=== PATIENT | male | born 1980 | race Two or more races ===

== ENCOUNTER 2025-09-08 13:06 | Emergency (ER) | payer OTHER, SELFPAY ==
--- OUTSIDE RECORDS SUMMARY | 2025-05-30 04:00 | XMS_ITS ---
Author Organization [facility] Address [address] [place] [address] Care Team Providers Care Biscuitware Brusher Name Role Phone Ml RIVAS, Miguel Woodward Primary Care Provider Unav ailable Madai Guerrero Unavailable [phone] REASON FOR VISIT Seen Sooner Encounters Encounter Location Date Provider Diagnosis [address] [address] 05/30/2025 Madai Guerrero Plan Of Treatment Next Appt Details Provider Name:Madai Graysondestiny mullen, 10/03/2025 10:00:00 AM, [address] [place] [address], [phone], Progress Notes * Quintin NAMroDOB:1980 ( 45 yo M)Acc No.[id number]:05/30/2025 Progress Note Patient: Robin ZARINA Jean Carlos Provider: Brandt Guerrero DPM :1980 A ge:44 Y S ex:Male Date:05/30/2025 Address: Manjit Axel [id number] Pcp:Miguel Bull MD Subjective: * Chief Complaints: * 1 . Seen Sooner. * Medical History: Objective: * Vitals: Assessment: Plan: * Treatment: * Images: * The named appointment provid er may or may not be the originator of this progress note, and it is not deemed complete until electronically signed by the appointment provider. Sign off status: Pending * Provider: Brandt Guerrero DPM Date: 0 05/30/2025 Generated for Samson Álvarez on: 11/08/2024 08:32 PM EST
--- OUTSIDE RECORDS SUMMARY | 2025-07-18 03:30 | XMS_ITS ---
Author Organization [facility] Address [address] [place] [phone] Care Team Providers Care Intensive Care Nurse Name Role Phone Ml RIVAS, Miguel Woodward Primary Care Provider Unav ailable Madai Guerrero Unavailable [phone] Encounters Encounter Location Date Provider Diagnosis [address] [address] 07/18/2025 Madai Guerrero Plan Of Treatment Next Appt Details Provider Name:Madai mullen, 10/03/2025 10:00:00 AM, [address] [place] [address], [phone], Progress Notes * Quintin NAMroDOB:1980 ( 45 yo M)Acc No.[id number]:07/18/2025 Progress Note Patient: Robin Jean Carlos SRINIVASAN Provider: Brandt Guerrero DPM :1980 A ge:44 Y S ex:Male Date:07/18/2025 Address:[facility] [address] [place], [id number] Pcp:Miguel Bull MD Subjective: * Chief Complaints: * * Medical History: Objective: * Vitals: Assessment: Plan: * Treatment: * Images: * The named appointment provid er may or may not be the originator of this progress note, and it is not deemed complete until electronically signed by the appointment provider. Sign off status: Pending * Provider: Brandt Guerrero, DARÍO Date: 0 07/18/2025 Generated for Samson holguin/Trini/Marian on: 11/08/2024 08:32 PM EST
--- OUTSIDE RECORDS SUMMARY | 2025-07-27 03:45 | XMS_ITS ---
[facility] Address [address] [place] [address] Care Team Providers Care Doorperson Or Luggage Porter Name Role Phone Ml RIVAS, Miguel Woodward Primary Care Provider Unav ailable Madai Guerrero Unavailable [phone] Encounters Encounter Location Date Provider Diagnosis Surgery [facility] ([facility]) [address] [place] [phone] 07/27/2025 Madai Guerrero Plan Of Treatment Next Appt Details Provider Name:Madai Barnhart paz, 10/03/2025 10:00:00 AM, [address] [place], [address], Progress Notes * Quintin NAMroDOB:1980 ( 45 yo M)Acc No.[id number]:07/27/2025 Patient: Robin Jean Carlos SRINIVASAN Provider: Brandt Guerrero DPM :1980 A ge:44 Y S ex:Male Date:07/27/2025 Address:[address] [place] [id number] Pcp:Miguel Bull MD * Images: * The named appointment provid er may or may not be the originator of this progress note, and it is not deemed complete until electronically signed by the appointment provider. Sign off status: Pending * Provider: Brandt Guerrero DPM Date: 1 Generated for Printi ng/Trini/Marian on: 1 11/08/2024 08:32 PM EST
--- NOTE | ~2025-09-08 | XR_ITS ---
EXAMINATION: XR ABDOMEN KUB CLINICAL INDICATION: Constipation. Small-bowel obstruction? COMPARISON: None available. TECHNIQUE: 3 AP views of the abdomen. FINDINGS: Moderate-large stool burden in the large colon. No abnormal dilated small or large bowel loops identified. No gross pneumoperitoneum on the supine views. Surgical clip in the right lower quadrant. The right lung base is not included in the [id number]. XR/XR KUB IMPRESSION: Moderate-large stool burden in the large colon. No abnormal dilated bowel loops identified. Electronically signed by: Danish Spann MD 09/08/2025 02:02 PM EST
--- NOTE | ~2025-09-08 | CT_ITS ---
CLINICAL HISTORY: epigastric abd pain, distention, bloating CT abdomen and pelvis with contrast Comparison: CR/SR - XR ABDOMEN 1 VIEW (KUB) - 09/08/25 13:52 EST Findings: The lung bases are clear. The gallbladder is unremarkable. No biliary ductal dilatation. The liver, spleen, pancreas and adrenal glands are unremarkable. Enhancement of bilateral kidneys with no ureteral stones and no hydronephrosis or hydroureter. Slight nonspecific bilateral perinephric stranding. No perinephric fluid. No bowel obstruction, pneumoperitoneum, or pneumatosis. There is mild haziness in retroperitoneal fat adjacent to the 3rd part of the duodenal which may represent mild duodenitis. No free fluid or loculated fluid collection. Right lower quadrant surgical clips suggestive of previous appendectomy. Correlate with surgical history. Pelvic contents unremarkable. Abdominal aorta normal in size. Small fat containing left inguinal hernia. The bones are intact. IMPRESSION: 1. Mild retroperitoneal fat haziness adjacent to the 3rd part of the duodenal may represent duodenitis. Further evaluate clinically. 2. Otherwise no acute findings. This document has been electronically signed by: Felecia Cifuentes MD on 09/08/2025 18:52:01
[2025-09-08 13:28] VITALS: BP 148/71; PULSE 80; RESP 20; TEMP 36.9; O2SAT 98; BMI 46.6
--- NOTE | 2025-09-08 13:32 | ED.GENADULT ---
HPI - General Adult General Chief complaint: Abdominal Pain Stated complaint: Stomach Pain Time Seen by Provider: 09/08/25 16:05 History of Present Illness ED Provider: Lisa Campbell [facility] narrative: 45-year-old male with a self-reported medical history of IBS presents to the ED for evaluation reporting severe constipation ongoing for 4-5 days. Patient reports that he went to an urgent care 5 days ago and was prescribed an oral pill as well as liquid and has taken both but still has not had a sufficient bowel movement. He reports his abdomen feels as though there is a brick inside of it, and is very distended and painful. He reports the pain now wraps around to the middle of the back. He endorses a decent appetite, without nausea or vomiting. No diarrhea. Denies any rectal pain or pressure. No black, tarry stools. Does report he is frequently belching and having difficulty passing gas. No fever or chills. No groin pain. No urinary complaints including dysuria, hematuria, urgency or frequency. No chest pain, shortness of breath, palpitations. Related Data Previous Rx's ?Medication ?Instructions ?Recorded lidocaine 4 % topical patch 1 patch topical BID PRN pain #30 ea 09/14/22 tizanidine 4 mg capsule 4 mg PO TID PRN muscle spasticity 09/14/22 #30 caps pantoprazole 40 mg tablet,delayed 40 mg PO DAILY 14 days #14 tabs 09/08/25 release (Protonix) polyethylene glycol 3350 17 17 g PO BID 21 days #714 grams 09/08/25 gram/dose oral powder (Miralax) Allergies Allergy/AdvReac Type Severity Reaction Status Date / Time ibuprofen (IBUPROFEN) Allergy Intermediate HIVES, rash Verified 09/08/25 13:31 [facility] Social History Social History Smoked in Last 30 Days: No Use of substances other than those prescribed or required for medical reasons: No Advance Directives: No Advance Directives Information Provided: No Do you have a plan to hurt others: No Plan Physical Exam ED Exam Exam: Nursing notes and vital signs reviewed. Constitutional: Well-appearing, NAD. Alert. Oriented X3. Eyes: EOMI. ENT: Pharynx normal. Neck: Normal inspection. Neck supple. CVS: Normal heart rate and rhythm. Pulses normal. Respiratory: No respiratory distress. Breath sounds normal. Abdomen: Soft, subjective tenderness throughout exam. Mild distention of the abdomen. Bowel sounds active x4. No CVA tenderness bilaterally. Skin: Skin warm and dry. Normal skin color. Extremities: No lower extremity edema. Neuro: Oriented X 3. No motor deficit. Vital Signs: Vital Signs - 24 hr 09/08/25 13:28 09/08/25 16:45 09/08/25 18:39 Temperature 98.4 F 98.0 F 97.5 F Pulse Rate 80 79 75 Respiratory Rate 20 18 16 Blood Pressure 148/71 H 129/64 122/71 Pulse Oximetry 98 96 98 Oxygen Delivery Method Room Air Room Air Room Air BMI result Body Mass Index 46.6 Course Course Course Narrative: RME: 45-year-old male presents to ED for constipation abdominal distention. Patient states last bowel movement was a week ago. Patient has no relief with pills or liquid laxative. Labs and KUB ordered Medications Administered Discontinued Medications Generic Name Dose Route Start Last Admin Trade Name Freq PRN Reason Stop Dose Admin Sodium Chloride 1,000 mls @ 999 mls/hr 09/08/25 16:25 09/08/25 18:02 Ns IV 09/08/25 17:25 Infused .Q1H1M ONE Infusion Famotidine 20 mg/ Sodium 52 mls @ 200 mls/hr 09/08/25 19:15 09/08/25 19:52 Chloride IV 09/08/25 19:30 Infused ONCE ONE Infusion Iohexol 100 ml 09/08/25 18:06 09/08/25 18:06 Iohexol 350 Mg/Ml 100 Ml Infus..Btl IV 09/08/25 18:07 85 ml ONCE ONE Administration Ketorolac Tromethamine 15 mg 09/08/25 16:25 09/08/25 16:47 Ketorolac Tromethamine 15 Mg/Ml Vial IVPUSH 09/08/25 16:26 15 mg ONCE ONE Administration Medical Decision Making Medical Decision Making MDM Narrative: Overall he appears well. Abdominal exam with diffuse tenderness throughout. Reports that the pain is radiating to the mid back as well. There is no CVA tenderness bilaterally. I have reviewed his lab work, which is reassuring. There is no leukocytosis, however his LFTs are elevated at 39 81, and lipase is 132. He does endorse mild epigastric pain. The x-ray that was ordered by the triage provider does show a moderate large stool burden, but no abnormal dilation of the bowel loops. Given the tenderness, I am concerned there may be a bowel obstruction missed on x-ray, or colitis, pancreatitis. We will proceed with pain control and IV fluid bolus, CT imaging of the abdomen and pelvis. I considered ordering a dose of morphine for this patient however given his constipation have opted for a dose of Toradol. 1904-- his CT shows mild retroperitoneal fat haziness sedation to the 3rd part of the duodenal which may represent duodenitis, otherwise no acute findings. He does a large stool burden likely there is no duodenitis, and his discomfort is from the large stool burden. I will discuss with the patient a bowel regimen outpatient with instructions for follow up care, but he was given a 1 time dose of Pepcid while in the ED. 1919-- reporting improvement after the Pepcid dose. Plan to discharge home with a bowel regimen. Patient is agreeable to this plan. Provided strict return precautions to the ED. Recommended PCP f/u within 1 week. Differential Diagnosis Differential Diagnoses: The differential diagnosis associated with the presentation includes Colitis, bowel obstruction, constipation, fecal impaction, renal stone Admission/Observation Consideration of admission/observation: Escalation of care including admission/observation considered Lab Data MDM Lab Attestation statement: I reviewed the patient's lab results. (Elevations in LFTs, lipase level.) 09/08/25 15:02 09/08/25 15:02 Labs: Lab Results 09/08/25 Range/Units 15:02 WBC 10.8 (4.8-10.8) X10*3/uL RBC 5.80 (4.60-5.80) X10*6/uL Hgb 14.2 (14.0-18.0) g/dl Hct 45.8 (42.0-52.0) % MCV 79.0 L (80.0-98.0) fL MCH 24.5 L (27.0-33.0) pg MCHC 31.0 (31.0-36.0) g/dl RDW 15.6 (11.0-16.0) % Plt Count 349 (160-400) X10*3/uL MPV 8.4 L (9.4-12.4) fL Immature Gran % (Auto) 0.4 (0.0-0.4) % Neut % (Auto) 63.6 (45-73) % Lymph % (Auto) 26.3 (20-40) % Fajardo % (Auto) 8.1 (2-11) % Eos % (Auto) 1.4 (0-4) % Baso % (Auto) 0.2 (0-2) % Lymph # (Auto) 2.8 (1.2-4.9) X10*3/uL Fajardo # (Auto) 0.9 (0.1-1.2) X10*3/uL Eos # (Auto) 0.2 (0.0-0.4) X10*3/uL Baso # (Auto) 0.0 (0.0-0.2) X10*3/uL Abs Immat Gran (auto) 0.04 H (0.00-0.03) X10*3/uL Absolute Neuts (auto) 6.9 (2.0-8.3) x10*3/uL Absolute Nucleated RBC 0.000 (0.0-0.012) X10*3/uL Nucleated RBC % (auto) 0.0 (0.0-0.2) /100WBC Sodium 142 (135-145) mmol/L Potassium 4.8 (3.3-5.1) mmol/L Chloride 105 (96-108) mmol/L Carbon Dioxide 29 (22-29) mmol/L Anion Gap 13 (12-20) BUN 15 (9-16) mg/dL Creatinine 0.97 (0.5-1.4) mg/dL Estim Creat Clear Calc 119.2 Estimated GFR > 60 Random Glucose 102 (60-115) mg/dL Calcium 9.6 (8.4-10.2) mg/dL Total Bilirubin 0.4 (0.0-1.0) mg/dL AST 39 H (5-37) U/L ALT 81 H (0-40) U/L Alkaline Phosphatase 98 (39-117) U/L Total Protein 8.3 H (6.5-8.0) g/dL Albumin 4.9 (3.5-5.0) g/dL Lipase 132 H (8-78) U/L Independent Interpretation I performed an independent interpretation of an: Plain X-Ray (No obvious bowel obstruction.) Interpretation: I have reviewed the patient's imaging and agree with the radiologist's findings. Radiology Impression Discussion of test interpretation with radiology: I have reviewed the radiologist's reading. Radiologist Impression: XR/XR KUB IMPRESSION: Moderate-large stool burden in the large colon. No abnormal dilated bowel loops identified. CT Abd/Pelvis-- IMPRESSION: 1. Mild retroperitoneal fat haziness adjacent to the 3rd part of the duodenal may represent duodenitis. Further evaluate clinically. 2. Otherwise no acute findings. External Record Review External record reviewed: Outpatient record (Outpatient clinic visit) Chronic Conditions Patient?s care impacted by: Other (IBS) Discharge Plan Discharge Clinical Impression: Abdominal pain, Constipation Patient Disposition: Home, Self-Care Instructions: Constipation (DC) Additional Instructions: As we discussed, your lab work was overall reassuring, as was the CT scan of the abdomen and pelvis. I have placed you on a short course of Protonix, medication to help with acid suppression of the stomach. If you develop any increasing burping, epigastric abdominal pain, we would like for you to seek re-evaluation in the ED. Additionally, dysuria constipation we discussed using [id number] methods including MiraLax twice daily. Please take 1 capsule in the evening, and 1 capsule in the morning. You should also take a Dulcolax, stimulant laxative to help have a bowel movement. We also recommend keeping the Senokot and your bowel regimen. You may also take Metamucil gummies in the morning to help with bowel movements. Please follow up with your primary care provider within 1 week. With any worsening complaints at any time, please seek re-evaluation in the ED. Prescriptions: New pantoprazole [Protonix] 40 mg tablet,delayed release (DR/EC) 40 mg PO DAILY 14 Days Qty: 14 0RF polyethylene glycol 3350 [Miralax] 17 gram/dose powder 17 g PO BID 21 Days Qty: 714 0RF No Action lidocaine 4 % adhesive patch,medicated 1 patch topical BID PRN (Reason: pain) Qty: 30 0RF tizanidine 4 mg capsule 4 mg PO TID PRN (Reason: muscle spasticity) Qty: 30 0RF Rx Instructions: Give 8-[address] or safety sensitive duties after taking this medication Referrals: Miguel Bull MD [Primary Care Provider, Medical] Interventions: ED Discharge Assessment Last Done: 09/08/25 19:49 Discharge Date/Time: 09/08/25 19:53 Print Language: Syriac
[2025-09-08 15:07] LABS: MANUAL DIFF FLAG NO
[2025-09-08 15:09] LABS: Hematocrit 45.8 % (42.0-52.0); Hemoglobin 14.2 g/dl (14.0-18.0); Imm Gran Abs Auto 0.04 X10*3/uL (0.00-0.03); Imm Gran Pct Auto 0.4 % (0.0-0.4); Lymphocytes Absolute Auto 2.8 X10*3/uL (1.2-4.9); Mean Corpuscular HGB Conc 31.0 g/dl (31.0-36.0); Mean Corpuscular Hemoglobin 24.5 pg (27.0-33.0); Mean Corpuscular Volume 79.0 fL (80.0-98.0); NRBC Abs Auto 0.000 X10*3/uL (0.0-0.012); NRBC Pct Auto 0.0 /100WBC (0.0-0.2); Platelet Count 349 X10*3/uL (160-400); Red Blood Count 5.80 X10*6/uL (4.60-5.80); White Blood Count 10.8 X10*3/uL (4.8-10.8)
[2025-09-08 15:24] LABS: Alanine Aminotransferase 81 U/L (0-40); Albumin Level 4.9 g/dL (3.5-5.0); Alkaline Phosphatase 98 U/L (39-117); Anion Gap 13 (12-20); Aspartate Amino Transferase 39 U/L (5-37); Blood Urea Nitrogen 15 mg/dL (9-16); Calcium 9.6 mg/dL (8.4-10.2); Carbon Dioxide 29 mmol/L (22-29); Chloride 105 mmol/L (96-108); Creatinine Clr Calc Pharmacy 119.2; Estimated Glomerular Filt Rate > 60; Lipase 132 U/L (8-78); Potassium 4.8 mmol/L (3.3-5.1); Sodium 142 mmol/L (135-145); Total Protein 8.3 g/dL (6.5-8.0)
[2025-09-08 16:45] VITALS: BP 129/64; PULSE 79; RESP 18; TEMP 36.7; O2SAT 96
[2025-09-08] MEDS: iohexoL 350 MG/ML 100 ML INFUS..BTL IV (18:06)
[2025-09-08 18:39] VITALS: BP 122/71; PULSE 75; RESP 16; TEMP 36.4; O2SAT 98
[2025-09-08 19:49] VITALS: BP 122/71; PULSE 75; RESP 16; TEMP 36.4; O2SAT 98
--- OUTSIDE RECORDS SUMMARY | 2025-09-08 20:32 | XMS_ITS | Patient Health Record ---
Author Organization [facility] Address [address] [facility] [place] [address] Care Team Providers Care Human Resources Mgr Name Role Phone Ml RIVAS, Miguel Woodward Primary Care Provider Unav ailable Madai Guerrero Unavailable [phone] David Parnell Unavailable [phone] Allergies Allergen (clinical drug ingredient) Drug/Non Drug Allergy documented on EMR Reaction Allergy Type Onset Date Status ibuprofen Ibuprofen hives Drug Allergy Active Results Component Value Reference Range Notes HEMOGLOBIN A1C (GLYCOHEMOGLO BIN) Reviewed date:02/10/2025 03:38:51 PM Interpretation: Performing Lab: Notes/Report: HEMOGLOBIN A1C % (HH) 8.4 HEMOGLOBIN A1C (GLYCOHEMOGLO BIN) Reviewed date:07/18/2025 03:19:16 PM Interpretation: Performing Lab: Notes/Report: HEMOGLOBIN A1C % (HH) 7.7 Reason For Referral No Information Medications Medication SIG (Take, Route, Frequency, Duration) Notes Start Date End Date Status Lisinopril 10 MG 1 tablet Orally Once a day Active Metoprolol Tartrate 25 MG 1 tablet with food Orally Twice a day; Duration: 30 day(s) Active metFORMIN HCl 500 MG 1 tablet with a meal Orally Once a day; Duration: 30 day(s) Active Ozempic Active Extra Depth Diabetic Shoes with 3 Pair Custom heat-molded multi-density innersoles for 1 year Dx: Active Famotidine 20 MG 1 tablet at bedtime as needed Orally Once a day Active Pantoprazole Sodium 40 MG 1 tablet Orally Once a day; Duration: 30 day(s) Active Extra Depth Diabetic Shoes with 3 Pair Custom heat-molded multi-density innersoles for 1 year Dx: Active Acetaminophen-Codein e 300-30 MG 1 tablet as needed Orally every 6 hrs 07/27/2025 Active Ciclopirox Olamine 0.77 % 1 application to affected area Externally Twice a day to effected areas on feet; Duration: 30 days Active Custom Orthotics as directed 05/31/2024 Active Atorvastatin Calcium 20 MG 1 tablet Orally Once a day; Duration: 30 day(s) Active Clotrimazole-Betamet hasone 1-0.05 % 1 application to affected area Externally Twice a day to affected areas on feet; Duration: 30 days Not-Taking Insulin Active oxyCODONE-Acetaminop hen 7.5-325 MG 1 tablet as needed Orally every 6 hrs; Duration: 3 days Partial Fill upon Patient Request 07/28/2025 Active glipiZIDE Active buPROPion HCl ER (SR) 200 MG 1 tablet in the morning Orally Once a day; Duration: 30 day(s) Active Loratadine 10 MG 1 tablet Orally Once a day; Duration: 30 day(s) Active Immunizations Vaccine Route Administration Date Status Comme nts Influenza Unknown 05/17/2019 Refused Influenza Unknown 07/20/2024 Administered Influenza Unknown 05/16/2025 Refused COVID-19 Chad & Chad/Jo-Ann Unknown 01/22/2021 A dministered Social History Tobacco Use: Social History Observation Description Date Details (start date - stop date) Never Smoker NA - NA Tobacco use other than smoking: Question Answer Notes Are you an other tobacco user? No Tobacco Control (Standard) Question Answer Notes Tobacco use: Nonsmoker Additional Findings: Tobacco non-user Current no nsmoker AUDIT-C (Standard) Question Answer Notes Did you have a drink containing alcohol in the p ast year? No Points 0 Interpretation Negative Problems Problem Type SNOMED Code ICD Code Onset Dates Problem Status W/U Status Risk Notes Problem Acquired hammer toe of left foot (3696690372115552 ) Other hammer toe(s) (acquired), left foot (M20.42) Active confirmed Problem Polyneuropathy due to type 2 diabetes mellitus (893528631) Type 2 diabetes mellitus with diabetic polyneuropathy (E11.42) Active confirmed Problem Localized, primary osteoarthritis of the ankle and/or foot (306494672) Arthritis of joint of lesser toe, left (M19.072) Active confirmed Vital Signs Blood pressure diastolic 65 mm Hg 08/08/2025 Height 5ft 5in in 08/08/2025 Blood pressure systolic 128 mm Hg 08/08/2025 Weight 280 lbs 08/08/2025 BMI 46.59 kg/m2 08/08/2025 Procedures Procedure Date Ordered Date Performed Result Body Sit e 00593- Debride <25 sq cm 02/14/2025 N/A Encounters Encounter Location Date Provider Diagnosis Surgery [facility] ([facility]) [address] [place] [address] 07/27/2025 Madai Guerrero [address] [address] 02/10/2025 Madai Guerrero Pain in left toe(s) M79.675 ; Other hammer toe(s) (acquired), left foot M20.42 and Arthritis of joint of lesser toe, left M19.[address] [address] 02/14/2025 Madai Guerrero Pain in left toe(s) M79.675 ; Other hammer toe(s) (acquired), left foot M20.42 ; Arthritis of joint of lesser toe, left M19.072 and Skin ulcer of toe of left foot, limited to breakdown of skin L97.[address] [address] 05/16/2025 Madai Guerrero Pain in left toe(s) M79.675 ; Other hammer toe(s) (acquired), left foot M20.42 ; Arthritis of joint of lesser toe, left M19.072 and Type 2 diabetes mellitus with diabetic polyneuropathy E11.[address] [address] 07/18/2025 Madai Guerrero Pain in left toe(s) M79.675 ; Other hammer toe(s) (acquired), left foot M20.42 ; Arthritis of joint of lesser toe, left M19.072 and Type 2 diabetes mellitus [facility]uropathy [facility] [address] [facility] [address] [place] [address] 07/29/2025 Madai Guerrero Pain in left toe(s) M79.675 ; Arthritis of joint of lesser toe, left M19.072 ; Type 2 diabetes mellitus with diabetic polyneuropathy E11.42 and [facility] [address] 08/08/2025 Madai Guerrero Pain in left toe(s) M79.675 ; Arthritis of joint of lesser toe, left M19.072 ; Type 2 diabetes mellitus with diabetic polyneuropathy E11.42 and Postoperative visit Z48.89 [facility] [address] 08/22/2025 Madai Guerrero Pain in left toe(s) M79.675 ; Arthritis of joint of lesser toe, left M19.072 ; Type 2 diabetes mellitus with diabetic polyneuropathy E11.42 and Postoperative visit Z48.89 [facility] [address] 02/11/2025 David Parnell [facility] [address] 02/14/2025 [facility] [address] 05/17/2025 [facility] [address] 06/22/2025 Madai Guerrero [facility] [address] 07/27/2025 Madai Guerrero [facility] [address] 07/28/2025 Madai Guerrero [facility] [address] 07/28/2025 Madai Guerrero Assessments Encounter Date Diagnosis (ICD Code) Assessment Notes Treatment Notes Treatment Clinical Notes Section Notes 02/10/2025 Pain in left toe(s) (ICD-10 - M79.675) 02/10/2025 Other hammer toe(s) (acquired), left foot (ICD-10 - M20.42) 02/14/2025 Pain in left toe(s) (ICD-10 - M79.675) 02/14/2025 Other hammer toe(s) (acquired), left foot (ICD-10 - M20.42) 05/16/2025 Pain in left toe(s) (ICD-10 - M79.675) 05/16/2025 Other hammer toe(s) (acquired), left foot (ICD-10 - M20.42) 07/18/2025 Pain in left toe(s) (ICD-10 - M79.675) 07/18/2025 Other hammer toe(s) (acquired), left foot (ICD-10 - M20.42) 07/29/2025 Pain in left toe(s) (ICD-10 - M79.675) 07/29/2025 Arthritis of joint of lesser toe, left (ICD-10 - M19.072) 08/08/2025 Pain in left toe(s) (ICD-10 - M79.675) 08/08/2025 Arthritis of joint of lesser toe, left (ICD-10 - M19.072) 08/22/2025 Pain in left toe(s) (ICD-10 - M79.675) 08/22/2025 Arthritis of joint of lesser toe, left (ICD-10 - M19.072) 07/18/2025 Arthritis of joint of lesser toe, left (ICD-10 - M19.072) 08/22/2025 Type 2 diabetes mellitus with diabetic polyneuropathy (ICD-10 - E11.42) 08/08/2025 Type 2 diabetes mellitus with diabetic polyneuropathy (ICD-10 - E11.42) 07/29/2025 Type 2 diabetes mellitus with diabetic polyneuropathy (ICD-10 - E11.42) 05/16/2025 Arthritis of joint of lesser toe, left (ICD-10 - M19.072) 02/14/2025 Arthritis of joint of lesser toe, left (ICD-10 - M19.072) 02/10/2025 Arthritis of joint of lesser toe, left (ICD-10 - M19.072) 02/14/2025 Skin ulcer of toe of left foot, limited to breakdown of skin (ICD-10 - L97.521) Patient Educated with: WOUND CARE INSTRUCTIONS. pdf (WOUND CARE INSTRUCTIONS. pdf) 05/16/2025 Type 2 diabetes mellitus with diabetic polyneuropathy (ICD-10 - E11.42) 07/18/2025 Type 2 diabetes mellitus with diabetic polyneuropathy (ICD-10 - E11.42) 07/29/2025 Postoperative visit (ICD-10 - Z48.89) 08/08/2025 Postoperative visit (ICD-10 - Z48.89) 08/22/2025 Postoperative visit (ICD-10 - Z48.89) 02/14/2025 Other Patient Educated with: WOUND CARE INSTRUCTIONS. pdf (WOUND CARE INSTRUCTIONS. pdf) Plan Of Treatment Pending Test Test Name Order Date X ray : Foot, left 3V 02/27/2023 X ray : Foot, left 3V 05/31/2024 13598- Debride <25 sq cm 02/14/2025 08894-XSOD SKIN LESIONS, OVER 4 05/17/20 19 04253-THPJ SKIN LESIONS, OVER 4 07/19/20 19 39377-DNAS SKIN LESIONS, OVER 4 03/02/20 21 C1893-FHAGSMNT DYSTROPHIC NAILS ANY # J2175-[id number] DYSTROPHIC NAILS ANY # [id number] DYSTROPHIC NAILS ANY # HEMOGLOBIN A1C (GLYCOHEMOGLOBIN) 025 Next Appt Details Provider Name:Madai Bronwyn mullen, 10/03/2025 10:00:00 AM, [address] [place], [address], Insurance Providers Payer Name Payer Address Payer Phone Subscriber Number Group Number Insured Name Patient Relationship to Insured Coverage Start Date Coverage End Date [facility] [address] [place] [address] [phone] [id number] Jean Carlos Childs Self - patient is the insured Medical (General) History Medical History History ICD Code Cholesterol type II diabetes High blood pressure Reflux ( GERD) Surgical History Surgery Date(Month/Year) appendectomy umbilical hernia repair HT Repair L5th DIAB, W/P 07/27/2025
--- OUTSIDE RECORDS SUMMARY | 2025-09-08 20:33 | XMS_ITS ---
Author Name [facility] Organization Unknown Care Team Organization Name Specialty Phone Email Start Date End Da te [facility] Ashley Hayden Primary [facility] 02/24/2023 06/07/20 [facility] Ml Primary Care 08/27/2022 06/07/2024
--- OUTSIDE RECORDS SUMMARY | 2025-09-08 20:33 | XMS_ITS | Data Portability ---
Author Organization [facility], [address] Address [address] [place] [address] Care Team Providers Care Quality Improvement Coordinator Name Role Phone [facility] Prim star junction Care Provider Assessment No assessment recorded. Plan of Treatment Reminders Order Date Submit Date Provider Last Modified By Organization Details Last Modified Time Details Appointments None recorded. Lab urinalysis , dipstick 2022 023 [email or web address] [facility], [address] [place] [address], [phone], 3 10:44:55 Referral None recorded. Procedures None recorded. Surgeries None recorded. Imaging XR, abdomen, 1 view 2022 023 [facility], [address] [place] [address], [id number], 3 11:33:05 Medication Orders None recorded. Patient TargetsNo targets recorded. Patient InstructionsNo instructions recorded. Reason for Referral None Reported. Results Created Date Observation Date Name Description Value Unit Range Abnormal Flag Note LastModifiedBy Organization Detail LastModifiedTime 02/18/2002/17/2023 urina lysis , dipst ick Unknown Analyte Light Yellow Not Available [facility] [address] [place] [address], [phone], 02/17/2023 10:06:15 02/18/20 23 02/17/2023 urina lysis , dipst ick Unknown Analyte Clear Not Available karl [address], [place], [address], 02/17/2023 10:06:15 02/18/20 23 02/17/2023 urina lysis , dipst ick Unknown Analyte Negati ve Not Available era wilson [address], [place], [address], 02/17/2023 10:06:15 02/18/20 23 02/17/2023 urina lysis , dipst ick Unknown Analyte Negati ve Not Available era wilson [address], [place], [address], 02/17/2023 10:06:15 02/18/20 23 02/17/2023 urina lysis , dipst ick Unknown Analyte Negati ve Not Available era wilson [address], [place], [address], 02/17/2023 10:06:15 02/18/20 23 02/17/2023 urina lysis , dipst ick Unknown Analyte 1.010 Not Available karl [address], [place], [address], 02/17/2023 10:06:15 02/18/20 23 02/17/2023 urina lysis , dipst ick Unknown Analyte Negati ve Not Available era wilson [address], [place], [address], 02/17/2023 10:06:15 02/18/20 23 02/17/2023 urina lysis , dipst ick Unknown Analyte 5.5 Not Available karl [address], [place], [address], 02/17/2023 10:06:15 02/18/20 23 02/17/2023 urina lysis , dipst ick Unknown Analyte Negati ve Not Available era [place]son [address] [place], [address], 02/17/2023 10:06:15 02/18/20 23 02/17/2023 urina lysis , dipst ick Unknown Analyte 0.2 E.U./d L Not Available era [place]son [address] [place], [address], 02/17/2023 10:06:15 02/18/20 23 02/17/2023 urina lysis , dipst ick Unknown Analyte Negati ve Not Available 20[address]era wilson [address] [place], [address], 02/17/2023 10:06:15 02/18/20 23 02/17/2023 urina lysis , dipst ick Unknown Analyte Negati ve Not Available [facility] [address], [place], [address], 02/17/2023 10:06:15 02/18/20 23 02/17/2023 XR, abdom en, 1 view No observ ation record ed. [place] [id number] [facility] [address] [place], [address], 02/17/2023 16:05:24 Result Notes None recorded. Procedures Surgical History Date Name Laterality Status Provider Name and Address Organization Details Recorded Time Appendectomy completed HARRY LOVETT PA - [facility] 02/17/2023 09:57:20 repair of umbilical hernia completed HARRY LOVETT PA - [facility] 02/17/2023 09:57:52 Imaging Results None recorded. Procedure Notes None recorded. Medical Equipment None Reported. Allergies Allergen ID Allergen Name Allergen Category Reaction Reaction Severity Criticality Documentation Date Start Date Code Code System Note Provider Name and Address Organization Details Recorded Time 983405 ibuprofen medicatio n Not available Not available Not available 02/17/2023 5640 RxNorm HARRY steiner, PA - [facility] 3 09:54:59 Medications Name Sig Start Date Stop Date Status Note LastModified by Organization Details LastModified Time atorvastati n 20 mg tablet TAKE 1 TABLET BY MOUTH EVERY DAY active Not Available Not Available No t Available bupropion HCl 100 mg tablet TAKE 1 TABLET BY MOUTH TWICE A DAY active Not Available Not Available No t Available famotidine 20 mg tablet TAKE 1 TABLET BY MOUTH DAILY AT BEDTIME NEEDED FOR HEARTBURN active Not Available Not Available No t Available methocarbam ol 750 mg tablet TAKE 1 TABLET BY MOUTH EVERY DAY FOR 10 DAYS 02/17 completed Not Available Not Available Not Available pantoprazol e 40 mg tablet,chon yed release PLEASE SEE ATTACHED FOR DETAILED DIRECTION S active Not Available Not Available No t Available lisinopril 10 mg tablet TAKE 1 TABLET BY MOUTH EVERY DAY active Not Available Not Available No t Available bisacodyl 5 mg tablet,chon yed release PLEASE SEE ATTACHED FOR DETAILED DIRECTION S active Not Available Not Available No t Available metformin ER 500 mg tablet,exte nded release 24 hr TAKE 2 TABLETS BY MOUTH TWICE A DAY active Not Available Not Available No t Available loratadine 10 mg tablet TAKE 1 TABLET BY MOUTH EVERY DAY active Not Available Not Available No t Available glipizide 5 mg tablet TAKE 2 TABLETS IN THE MORNING BY MOUTH IN A.M. AND 2 TABLETS BY MOUTH IN P.M BEFORE DINNER active Not Available Not Available No t Available naproxen 500 mg tablet TAKE 1 TABLET BY MOUTH TWICE A DAY WITH MEALS 02/17 completed Not Available Not Available Not Available metoprolol tartrate 25 mg tablet TAKE 1 TABLET BY MOUTH TWICE A DAY active Not Available Not Available No t Available tizanidine 4 mg capsule TAKE 1 CAPSULE BY MOUTH 3 TIMES DAILY NEEDED FOR MUSCLE SPASMS active Not Available Not Available No t Available BD Ultra-Fine Short Pen Needle 31 gauge x 5/16 USE WITH INSULIN PEN ONCE DAILY active Not Available Not Available No t Available Lantus Solostar U-100 Insulin 100 unit/mL (3 mL) subcutaneou s pen INJECT 36 UNITS INTO SKIN ONCE AT BEDTIME INCREASE BY 2 UNITS EVERY 3 DAYS MAX OF 44 UNITS active Not Available Not Available No t Available GaviLyte-G 236 gram-22.74 gram-6.74 gram-5.86 gram oral solution PLEASE SEE ATTACHED FOR DETAILED DIRECTION S 02/17 completed Not Available Not Available Not Available Trulicity 1.5 mg/0.5 mL subcutaneou s pen injector INJECT 1.5 MG INTO THE SKIN ONCE A WEEK. active Not Available Not Available No t Available Trulicity 3 mg/0.5 mL subcutaneou s pen injector INJECT 3 MG INTO THE SKIN ONCE A WEEK. active Not Available Not Available No t Available Trulicity 4.5 mg/0.5 mL subcutaneou s pen injector INJECT 4.5 MG INTO THE SKIN ONCE A WEEK. active Not Available Not Available No t Available Vitals Date Recorded Body height Body mass index (BMI) Body weight Oxygen saturation Heart rate Respiratory rate Body temperature Systolic And Diastolic Provider Name and Address Organization Details Last Updated DateTime 3 165.1 cm 48.9 kg/m2 769142. 16 g 98 % 72 /min 16 /min 98.3 [degF] 136/85 mm[Hg] HARRY LOVETT PA - [facility] 3 10:00:45 Social History Question Answer Notes LastModified by Organization D etails LastModified Time Have You Recently Traveled Abroad? No [email or web address] Information not available 02/17/2023 Sex: Unknown Functional Status Question Answer Note LastModified by Organizat ion Details LastModified Time Do you use any illicit or recreational drugs? No [email or web address] Information not available 02/17/2023 Do you or have you ever used any other forms of tobacco or nicotine? No Information not available 02/17/2023 What is your level of alcohol consumption? None Information not available 02/17/2023 Mental Status None recorded. Family History Relationship Description Onset Age of this Age Resolved Age Notes LastModified by Organization Details LastModified Time Father Diabetes mellitus [email or web address] Not available 2022 10:01:56 Medical History Condition Response Gout N Cancer, liver N Hyperthyroidism N Thyroid disorder N Rheumatoid arthritis N GI bleeding N Irritable bowel syndrome N Depression N COPD N Tinnitus, unspecified ear N Pneumonia N Cancer, uterus N Mental disorder, NOS N Headaches/Migraines N Insomia N Alzheimer's disease N Anxiety Disorder N Obesity N Arthritis N Cancer N Stroke N Alcohol abuse N Liver disease N Cancer, bladder N Allergy Food/Medication N Peripheral artery disease N Oxygen dependence N Fibromyalgia N Atrial fibrillation N Tinnitus, right ear N Kidney Disease N Deep vein thrombosis DVT leg N Migraine N Disorder of circulatory system N Anxiety N Cancer, brain N Disease of pancreas N Cancer, lung N Eating disorder, unspecified N Cancer, colon N Crohn's disease N Cancer, cervical N N Cancer, breast N Cancer, skin N Coagulation defect, unspecified N Cataract N Asthma N Congestive heart failure (CHF) N Substance Abuse N Vertigo N Coronary artery disease N Pulmonary Embolism N Cancer, pancreas N Tobacco use disorder N Disease of lung N Allergic rhinitis N Joint disorder, unspecified N Menopause N Drug dependence, unspecified N Back disorder N Hypothyroidism N Disorder kidney N Sickle Cell Anemia N Cancer, ovarian N Biswas's Palsy N Disorder of eye N Cancer, prostate N Allergy Seasonal N Drug abuse N Disorder of urinary system N Disorder of lymph system N Radiculopathy, site unspecified N Myoneural disorder, unspecified N Nervous system disorder N ADHD N High Cholesterol N Post-herpetic neuralgia N Aneurysm, cerebral N Tinnitus, left ear N Prostate hypertrophy, benign N Disorder of skin/subcutaneous N Osteoarthritis N Disorder of ear N Ovarian cysts N Parkinson's disease N Low back pain N Carpal tunnel syndrome N Disorder of muscle N Anemia N Kidney stone N Bipolar affective disorder N Leukemia, unspecified N Diabetes Y Endocrine disorder N Disorder involving the immune mechanism N Seizure N Hyperlipidemia N Lymphoma N Emphysema, unspecified N Eczema N Diverticulitis N Dementia N Lupus N Seizure disorder N Reflux/GERD Y Sleep Apnea N Cancer, bone N Disorder of thyroid N Cardiac arrhythmia, unspecified N Disorder of bone N Heart Disease N Liver Disorder N Disorder of brain N Hypertension N Aneurysm, aortic N Osteoporosis N Gastroesophageal reflux (GERD) N Disease of digestive system, unspecified N Past Encounters Encounter ID Performer Location Encounter Start Date Encounter Closed Date Diagnosis/Indication Diagnosis SNOMED-CT Code Diagnosis ICD10 Code Diagnosis IMO Codes Diagnosis Note [id number] [facility] _[address] [address] 07/09/2021 14:57:09 07/09/2021 16:26:10 [id number] [facility] [address] [address] 10/27/2015 16:01:40 10/27/2015 16:58:22 [id number] [facility] [address] [address] [place] [address] 08/02/2021 08:17:14 08/02/2021 09:39:14 [id number] [facility] [address] [address] [place] [address] 05/24/2016 14:53:09 05/24/2016 16:04:56 [id number] [address] [address] [address] [place] [address] 07/04/2016 14:29:04 07/04/2016 16:30:13 [id number] [facility] [address] [address] [place] [address] 10/31/2018 08:43:07 10/31/2018 09:49:05 [id number] [address] [address] [address] [place] [address] 12/29/2016 14:41:42 12/29/2016 16:08:49 [id number] [address] [facility] [address] [place] [address] 02/02/2016 14:53:07 02/02/2016 16:09:17 [id number] Kyle Lomeli MD [address] [address] [place] [address] 02/17/2023 09:29:32 02/17/2023 11:10:52 Abdominal discomfort 56646167 R10.9 Abdominal exam is normal and at this time I dont think there is a serious underlying cause but if symptoms worsen you will need to go to ER for further evaluation Suggest stopping metamucil, increasing water intake.Loo k up FOD-Map diet for IBS and follow.Fol low up with your PCP in the next 3-5 daysIf pain worsens then you need to go to the ER immediatel Victor Manuel s was negative Health Concerns Section Related Observation LastModified by Organization Detai ls LastModified Time None Recorded Concern Status LastModified by Organization Details LastModified Time None Recorded Advance Directives Directive None Recorded Payers Insurance Date Sequence Insurance Name Policy Number Policy Moraes Covered Member ID Moraes Member ID Guarantor Name 02/17/[address] [place] [address] [id number] Jean Carlos I I Childs [id number] Jean Carlos I Childs Notes Date Note Type Note Provider Name and Address Organization Details Recorded Time 02/17/2023 text/html Abdominal PainReported by PatientAbdominal PainFor quality, patient reportsbloating. For location, patient reportsgeneralized. For severity, patient reportsno pain. For onset/timing, patient reportsgradual. For modifying factors, patient reportsnothing makes it worseandnothing gives relief. For associated symptoms, patient reportsno fever,no chills,no nausea,no vomiting,no diarrhea,no constipation,no blood in the urine,no heartburn,no shortness of breath, andno change in bowel/bladder habits. Has IBS, thought maybe it was constipation and started taking Metamucil daily. Blood sugars are well controlled. having daily bowel movements, not passing excessive gas. Kyle Lomeli MD [facility] [place], [address], [place] - [facility] 02/17/2023 15:55:39
--- OUTSIDE RECORDS SUMMARY | 2025-09-08 20:33 | XMS_ITS | Clinical Summary ---
Author Organization [address] [place] [address] [place] [phone] Phone Care Team Providers Care Director Of Video Analytics Name Role Phone Miguel Bull MD Primary Care Provider [phone] Allergies Active Allergy Reactions Criticality Noted Date Comments Ibuprofen 12/01/2012 Other Reaction(s): Rash/Dermatitis Medications blood glucose control, normal (OneTouch Ultra Control) solution Use as needed 025 Active blood-glucose meter kit 1 each. Use daily Active FREESTYLE LANCETS MISC 1 (one) time each day. Use twice daily to check blood sugars Active blood sugar diagnostic (FreeStyle Lite Strips) test strip Use twice daily to check blood sugars 025 Active insulin syringe-needle U-100 0.3 mL 31 gauge x 5/16 syringe Use with insulin pen once daily 024 Active pen needle, diabetic (BD Ultra-Fine Short Pen Needle) 31 gauge x 5/16 needle Use to inject once daily as directed 100 each 3 024 Active Lantus Solostar U-100 Insulin 100 unit/mL (3 mL) injection penIndications:Ty pe 2 diabetes mellitus with hyperosmolarity without nonketotic hyperglycemic-hyp erosmolar coma ([facility]) ([facility]/HCC V24, [facility]/HCC V28) INJECT 54 UNITS INTO SKIN ONCE AT BEDTIME INCREASE BY 2 UNITS EVERY 3 DAYS MAX OF 60 UNITS 15 mL 5 025 Active loratadine (CLARITIN) 10 mg tablet Take 1 tablet (10 mg total) by mouth 1 (one) time each day. 90 tablet 1 025 Active fluticasone propionate (FLONASE) 50 mcg/actuation nasal spray Administer 2 sprays into each nostril 1 (one) time each day. Shake gently. Before first use, prime pump. After use, clean tip and replace cap. 16 g 2 025 2025 Active metoprolol tartrate (LOPRESSOR) 25 mg tablet TAKE 1 TABLET BY MOUTH TWICE A DAY 180 tablet 3 025 Active atorvastatin (LIPITOR) 20 mg tablet TAKE 1 TABLET BY MOUTH EVERY DAY 90 tablet 1 025 Active albuterol HFA (PROAIR HFA ; PROVENTIL HFA ; VENTOLIN HFA) 90 mcg/actuation inhaler Inhale 2 puffs by mouth every 4 (four) hours if needed for wheezing or shortness of breath. 6.7 g 025 Active buPROPion (WELLBUTRIN) 100 mg tablet Take 1 tablet (100 mg total) by mouth 2 (two) times a day. 180 tablet 1 025 Active lisinopriL (PRINIVIL,ZESTRIL ) 10 mg tablet Take 1 tablet (10 mg total) by mouth 1 (one) time each day. 90 tablet 1 025 Active pantoprazole (PROTONIX) 40 mg EC tablet Take 1 tablet (40 mg total) by mouth 1 (one) time each day before breakfast. Do not crush, chew, or split. 90 tablet 1 025 Active famotidine (PEPCID) 20 mg tablet Take 1 tablet (20 mg total) by mouth at bedtime. 30 tablet 5 025 Active metFORMIN XR (GLUCOPHAGE-XR) 500 mg 24 hr tablet TAKE 2 TABLETS BY MOUTH TWICE A DAY 360 tablet 1 025 Active Ozempic 2 mg/dose (8 mg/3 mL) injection penIndications:Ty pe 2 diabetes mellitus with hyperglycemia, with long-term current use of insulin ([facility] V24, [facility] V28) INJECT 2 MG SUBCUTANEOUSLY EVERY 7 DAYS 3 mL 5 025 Active semaglutide (Ozempic) 2 mg/dose (8 mg/3 mL) injection penIndications:Ty pe 2 diabetes mellitus with hyperglycemia, with long-term current use of insulin ([facility] V24, [facility] V28) Inject 2 mg under the skin every 7 (seven) days. 3 mL 5 025 2024 Discontinued Active Problems Problem Noted Date Diagnosed Date Morbid obesity with body mas s index (BMI) of 45.0 to 49.9 in adult ([facility] V24, [facility] V28) 08/02/2024 Low back pain 05/27/2022 Overview (08/02/2024): Last Assessment & Plan: Mr. Nam is following up with persistent low back pain, no radicular leg pain. Patient states he has been noticing some cramping in the calves the last few weeks, no particular inciting event other than patient started using insulin a few weeks ago around the same time. He has been working on improving his diabetic diet, like cutting out carbs/bread. In terms of his back pain, we had prescribed physical therapy at his last office visit, he went for 1 session then got a COVID infection and could not continue. In the meantime he had been billed for the entire PT session, found out his insurance company would not cover the PT until he reached his full deductible. He states that this time he cannot afford to do PT, but did try to continue the exercises they showed him on his first session. No bowel bladder incontinence. I reviewed his lumbar spine MRI at [facility] 05/07/[address] Bal while patient was in the office today, he does not see any nerve root compression, significant degenerative changes, is not recommending any surgical intervention. (He also looked at lumbar x-rays at [facility] on the patient.) Mr. Nam is working on improving his diet and caloric intake for his diabetes and weight loss, which should also help with his low back pain. He works at [employer] for approximately 9-10 hours a day, is mostly standing. We talked about continuing to try to work on core strengthening, walking daily. We talked about some of his dietary changes he can try. He will call if he needs a prescription for PT or aquatic PT, he is currently considering looking for a new insurance that may cover these conservative treatments. All questions answered on today's visit. I asked him to give me a call in a couple months with an update on how he is doing. Pilonidal cyst 04/17/2021 Elevated LFTs 07/17/2020 Intermittent explosive disorder 12/28/2018 Obstructive sleep apnea 03/31/2018 Overview (08/02/2024): [facility] Home Polysomnogram: Date 03/24/2018; AHI 15, Unclassified apneas 0; Obstructive apneas 1; Central apneas 0; Mixed apneas 0; hypopneas 86; average oxygen saturation 97% (lowest 88% without saturations <88% for 5% or more of study) - Obstructive Sleep Apnea - moderate; mostly hypopneas; without sleep related hypoventilation by 2018 home polysomnogram. Hyperlipidemia 03/19/2018 Type II diabetes mellitus ([facility] V24, [facility] V28) 10/08/2016 Hypertension 01/10/2016 Anxiety and depression 01/10/2016 Overview (08/02/2024): Anger issues follows by a psychiatrist Fatty liver disease, nonalcoholic 05/18/2012 Overview (08/02/2024): Elevated ALT Lactose intolerance 11/15/2010 GERD (gastroesophageal reflux disease) 0 Sinusitis, chronic 11/11/2008 Encounters Date Type Department Care Team Description 07/07/2025 10:00 AM EDT Consult Adult Medicine [address] [phone] Miguel Bull MD Preop cardiovascular exam (Primary Dx); Anxiety and depression; Primary hypertension; Gastroesophageal reflux disease, unspecified whether esophagitis present; Type 2 diabetes mellitus with hyperglycemia, with long-term current use of insulin ([facility] V24, [facility] V28) 06/23/2025 Telephone Gastroenterology - [place] [address] [facility] 175 [facility] [address] [place] [address] Rowena Mccoy MD from Last 3 Months Immunizations Immunization Administration Dates Next Due Influenza trivalent, 0.5mL, preservative free (Fluarix; FluLaval; Fluzone) ages 6mo and older (Afluria) 3 years and older 12/20/2013,07/13/2012 Pneumococcal polysaccharide 23 valent (Pneumovax 23) 2yo and older 02/01/2019 Td Tetanus diptheria (Tdvax) 7yo and older 05/24 Tdap Tetanus diptheria acell ular pertussis (Boostrix; Adacel) 7yo and older 05/20/2016 Surgical History Surgery Date Site/Laterality Comments ESOPHAGOGASTRODUODENOSCOPY 02/27/2010 PROCEDURE: [place] EGD TRANSORAL BIOPSY SINGLE/MULTIPLE; COMMENT: esophagus normal-biopsy:Normal, gastric erosion-biopsy:reactive gastropathy-healing erosion(HPylori-), nl sb-biopsy: Normal COLONOSCOPY W/ BIOPSIES 02/27/2010 PROCEDURE: [place] COLONOSCOPY STOMA W/BIOPSY SINGLE/MULTIPLE; COMMENT: Up to cecum, good preparation, normal colon exam, random colon biopsy:Normal OTHER SURGICAL HISTORY 09/05/2014 PROCEDURE: BARIUM SWALLOW; COMMENT: [facility] - small amount of high-grade positional gastroesophageal reflux with fair clearance. Otherwise normal. HERNIA REPAIR 05/17/2015 PROCEDURE: HISTORICAL HERNIA REPAIR/UMB; COMMENT: w/ sebaceous cyst excision APPENDECTOMY PROCEDURE: HISTORICAL APPENDECTOMY COLONOSCOPY 01/08/2017 PROCEDURE: HISTORICAL COLONOSCOPY; COMMENT: [facility] - 4mm TA polyp of sigmoid colon Medical History Medical History Date Comments GERD (gastroesophageal reflux disease) 0 DX:GERD (gastroesophageal reflux disease) Lactose intolerance 11/15/2010 DX:Lactose i ntolerance Historical Medical DX 11/11/2008 DX:Sinusit is; chronic Fatty liver disease, nonalcoholic 05/18/2012 DX:Fatty liver disease, nonalcoholic Hypertension 01/10/2016 DX:Hypertension Anxiety and depression 01/10/2016 DX:Anxiet y and depression Hypertriglyceridemia 01/10/2016 DX:Hypertri glyceridemia Vitamin D deficiency 01/10/2016 DX:Vitamin D deficiency Morbid obesity with body mas s index (BMI) of 45.0 to 49.9 in adult ([facility]/HCC V24, [facility]/HCC V28) 01/20/2013 DX:Morbid obesity with body mass index (BMI) of 45.0 to 49.9 in adult ([facility]) Elevated glucose 10/08/2016 DX:Elevated glu cose Family history of prostate cancer 10/07/2016 DX:Family history of prostate cancer Hyperlipidemia 03/19/2018 DX:Hyperlipidemi a Obstructive sleep apnea 03/31/2018 DX:Obstr uctive sleep apnea; COMMENT: [facility] Home Polysomnogram: Date 03/24/2018; AHI 15, Unclassified apneas 0; Obstructive apneas 1; Central apneas 0; Mixed apneas 0; hypopneas 86; average oxygen saturation 97% (lowest 88% without saturations <88% for 5% or more of study) - Obstructive Sleep Apnea - moderate; mostly hypopneas; without sleep related hypoventilation by 2018 home polysomnogram. Sinusitis, chronic 11/11/2008 DX:Sinusitis, chronic History of adenomatous polyp of colon 07/31/2020 DX:History of adenomatous polyp of colon; COMMENT: December 2016 - repeat in 5 years (2021) Type 2 diabetes mellitus wit hout complications (CMS/HCC V24, CMS/HCC V28) DX:Type 2 nir betes mellitus without complications (HCC) Abdominal bloating DX:Abdominal bloating Family History Medical History Relation Name Comments Hypertension Father prostate cancer Prostate cancer Father Other: Other Mother Borderline Diab etes Relation Name Status Comments Father Alive Mother Alive Social History Tobacco Use Types Packs/Day Years Used Date Smoking Tobacco: Former Cigarettes 1.5 5 0 10/20/1996 - 10/20/2001 Smokeless Tobacco: Former Tobacco Cessation:Counseling Given: Not Answered Alcohol Use Standard Drinks/Week Comments Yes 0 (1 standard drink = 0.6 oz pur e alcohol) Sex and Gender Information Value Date Recorded Sex Assigned at Not on file Legal Sex Male 11:45 PM EST Gender Identity Not on file Sexual Orientation Not on file Obstetrics History Last Filed Vital Signs Vital Sign Reading Time Taken Comments Blood Pressure 132/74 07/07/2025 10:38 AM EDT Pulse 76 07/07/2025 10:38 AM EDT Temperature 36.7 C (98.1 F) 07/07/2025 10:38 AM EDT Respiratory Rate 16 07/07/2025 10:38 AM EDT Oxygen Saturation 99% 02/23/2025 11:05 AM EDT Inhaled Oxygen Concentration - - Weight 127 kg (280 lb) 07/07/2025 10:38 AM EDT Height 165.1 cm (5' 5 ) 07/07/2025 10:38 AM EDT Body Mass Index 46.59 07/07/2025 10:38 AM EDT Plan of Treatment Upcoming Encounters Date Type Department Care Team (Late st Contact Info) Description 09/12/2025 8:00 AM EST Office Visit Endocrinology - [place] [address] [place], [place] [phone] Ashley Hayden PA [address] [place], [place] 11/14/2025 8:30 AM EST Office Visit Adult Medicine [place] [facility] [place] [address] [place], [place] [phone] Miguel Bull MD [address] [place], [place] 11/21/2025 9:50 AM EST Office Visit Gastroenterology - [address] [phone] Yulisa Antunez PA [address] [address] Health Maintenance Due Date Last Done Comments HPV Vaccines (1 - 3-dose SCDM series) 2007 Social Influencers of Health Screening 09/28/2022 COVID-19 Vaccine ( season) 2025 01/22/2021 Influenza Vaccine (#1) 2025 , 12/20/2013, 07/13/2012 Diabetes: Annual Urine Albumin-Creatinine Ratio (uACR) 06/28/2025 06/28/2024 Diabetes: Blood Sugar Control Test (HGBA1C) 11/16/2025 05/16/2025, 01/06/2025, 10/06/2024, Additional history exists Diabetes: Annual GFR (Glomerular Filtration Rate) 01/06/2026 01/06/2025, 06/28/2024, 06/28/2024 Hypertension/CHF/CAD Annual BMP Blood Test 01/06/2026 01/06/2025, 06/28/2024, 06/28/2024 Diabetes: Annual Foot Exam 05/10/2026 05/10/2025, Diabetes: Annual Retina Eye Exam 08/18/2026 08/18/2025, 08/05/2024, 08/12/2023 Colorectal Cancer Screening: Colonoscopy 06/25/2027 06/25/2022 Cholesterol Screening (Lipid Panel) 06/28/2029 06/28/2024, 06/28/2024 DTaP,Tdap,and Td Vaccines (4 - Td or Tdap) 04/19/2033 04/19/2023, 05/24/2016, 05/20/2016 RSV Immunization Adult Patients (1 - 1-dose 75+ series) 2055 HIV Screening Completed 03/15/2004 Pneumococcal Vaccine: Pediatrics (0 to 5 Years) and At-Risk Patients (6 to 49 Years) Discontinued 02/01/2019 Hepatitis C Screening Completed 07/17/2020 Depression Screening Completed 05/10/2025 HIB Vaccines Aged Out No longer eligi ble based on patient's age to complete this topic Hepatitis A Vaccines Discontinued Hepatitis B Vaccines Discontinued IPV Vaccines Aged Out No longer eligi ble based on patient's age to complete this topic MMR Vaccines Aged Out No longer eligi ble based on patient's age to complete this topic Meningococcal ACWY Vaccine Aged Out N o longer eligible based on patient's age to complete this topic Meningococcal B Vaccine Aged Out No l onger eligible based on patient's age to complete this topic RSV Immunization Patients Under 20 months Aged Out No longer eligible based on patient's age to complete this topic Varicella Vaccines Aged Out No longer eligible based on patient's age to complete this topic Procedures Procedure Name Priority Date/Time Associated Diagnosis Comments EXTERNAL DIABETIC RETINA EYE EXAM 08/18/2025 ECG 12-LEAD Routine 07/07/2025 1:43 PM EDT Preop cardiovascular exam HEMOGLOBIN A1C Routine 05/16/2025 10:04 AM EDT Diabetic polyneuropathy ([facility] V24, [facility] V28) COMPREHENSIVE METABOLIC PANEL Routine 01/06/2025 1:02 PM EDT Type 2 diabetes mellitus with hyperglycemia, with long-term current use of insulin ([facility] V24, [facility] V28) Primary hypertension HM URINE ALBUMIN CREATININE RATIO Routine 06/28/2024 LIPID PANEL Routine 06/28/2024 DIABETES FOOT EXAM Routine 05/31/2024 HM COLONOSCOPY Routine 06/25/2022 HM HEPATITIS C SCREENING Routine 07/17/2020 HIV SCREENING Routine 03/15/2004 from Last 3 Months or Most Recently Relevant to Health Maintenance Results * External Diabetic Retina Eye Exam Report (08/18/2025) Anatomical Region Laterality Modality Ultrasound us Provider [facility] US PROCEDURES Final Result * ECG 12 lead (07/07/2025 1:43 PM EDT) Narrative Miguel Bull MD - 07/07/2025 1:43 PM EDT EKG ordered in my file office today reviewed normal sinus rhythm and nonspecific ST-T changes. EKG reviewed by me compared with previous tracing, there is no acute changes. Final reading by cardiology still pending. us Miguel Bull MD ECG ORDERABLES Final Result * (ABNORMAL) Hemoglobin A1c (05/16/2025 10:04 AM EDT) Hemoglobin A1C 7.7(H) <6.5 % LAB CHEMISTRY METHOD 05/16/2025 2:04 PM EDT [facility] Mean Bld Glu Estim. 174 mg/dL LAB CHEMISTRY METHOD 05/16/2025 2:04 PM EDT [facility] Blood Venous blood specimen / Unknown Venipuncture / Unknown 05/16/2025 10:04 AM EDT 05/16/2025 10:04 AM EDT us Madai Guerrero DPM LAB BLOOD ORDERABLES Final Result [facility] [address] [place] [address], * (ABNORMAL) Comprehensive metabolic panel (01/06/2025 1:02 PM EDT) Sodium 138 133 - 145 mmol/L LAB CHEMISTRY METHOD 01/06/2025 4:53 PM EDT [facility] Potassium 4.7 3.5 - 5.5 mmol/L LAB CHEMISTRY METHOD [facility]25 4[facility] Chloride 104 96 - 110 mmol/L LAB CHEMISTRY METHOD 01/06/2025 4:53 PM [facility] CO2 30 21 - 32 mmol/L LAB CHEMISTRY METHOD 01/06/2025 4:53 PM [facility] Anion Gap 4 3 - 11 LAB CHEMISTRY METHOD 01/06/2025 4:53 PM [facility] Glucose 106(H) 70 - 100 mg/dL LAB CHEMISTRY METHOD 01/06/2025 4:53 PM [facility] BUN 16 5 - 25 mg/dL LAB CHEMISTRY METHOD 01/06/2025 4:53 PM [facility] Creatinine 1.01 0.70 - 1.30 mg/dL LAB CHEMISTRY METHOD 01/06/2025 4:53 PM [facility] eGFR 94 >=60 mL/min/1. 73m2 LAB CHEMISTRY METHOD 01/06/2025 4:53 PM [facility] Comment:Calculation based on the Chronic Kidney Disease Epidemiology Collaboration (CKD-EPI) equation refit without adjustment for race. BUN/Creatinine Ratio 15.8 LAB CHEMISTRY METHOD 01/06/2025 4:53 PM [facility] Calcium 9.5 8.5 - 10.5 mg/dL LAB CHEMISTRY METHOD 01/06/2025 4:53 PM [facility] AST (SGOT) 36 10 - 42 unit/L LAB CHEMISTRY METHOD 01/06/2025 4:53 PM EDT [facility] ALT (SGPT) 75(H) 10 - 60 unit/L LAB CHEMISTRY METHOD 01/06/2025 4:53 PM EDT [facility] Alkaline Phosphatase 88 42 - 121 unit/L LAB CHEMISTRY METHOD 01/06/2025 4:53 PM EDT [facility] Total Protein 7.9 6.0 - 8.0 g/dL LAB CHEMISTRY METHOD 01/06/2025 4:53 PM EDT [facility] Albumin 4.1 3.2 - 5.0 g/dL LAB CHEMISTRY METHOD 01/06/2025 4:53 PM EDT [facility] Total Bilirubin 0.4 0.0 - 1.4 mg/dL LAB CHEMISTRY METHOD 01/06/2025 4:53 PM EDT [facility] Blood Venous blood specimen / Unknown Venipuncture / Unknown 01/06/2025 1:02 PM EDT 01/06/2025 1:02 PM EDT Ashley ABBOTT LAB BLOOD ORDERABLES Final Resul t [facility] [address] [place] [address], * Urine Albumin Creatinine Ratio (06/28/2024) Urine Albumin Creatinine Ratio abstracted Historical Provider HEALTH MAINTENANCE Final Result * (ABNORMAL) Lipid panel (06/28/2024) LDL/HDL Ratio 4 0 - 4 Triglycerides 248(A) 0 - 150 mg/dL Cholesterol 153 0 - 200 mg/dL HDL 40 >=40 mg/dL LDL Cholesterol 64 0 - 100 mg/dL Blood Venous blood specimen / Unknown Historical Provider LAB BLOOD ORDERABLES Diana l Result * Diabetes Foot Exam (05/31/2024) Pathologist [facility] Diabetes: Annual Foot Exam abstracted Historical Provider HEALTH MAINTENANCE Final Result * Colonoscopy (06/25/2022) Pathologist [facility] Colonoscopy normal, abstracted Anatomical Region Laterality Modality Other [facility] Provider HEALTH MAINTENANCE Final Result * Hepatitis C Screening (07/17/2020) Pathologist [facility] Hepatitis C Screening abstracted [facility] Provider HEALTH MAINTENANCE Final Result * HIV Screening (03/15/2004) [facility] HIV Screening abstracted [facility] Provider HEALTH MAINTENANCE Final Result from Last 3 Months or Most Recently Relevant to Health Maintenance Insurance [facility] Care Teams Director Of Video Analytics Relationship Specialty Start Date End Date Miguel Bull MD [address] [place] [address] [place] [address] PCP - General Internal Medicine 08/09/11
== END 2025-09-08 19:53 | disposition home or self-care (01) ==
PROVIDERS: Physician Assistant; Emergency Provider Emergency Medicine; PCP Internal Medicine
DX: K59.00 Constipation, unspecified (principal); R10.13 Epigastric pain; R14.0 Abdominal distension (gaseous)
CPT/HCPCS: 36415; 74018; 74177; 80053; 83690; 85025; 96361; 96365; 96375; 99284; 99285; J1308; J1885; Q9967

== ENCOUNTER → 2025-09-08 13:31 | Outpatient (BNV) | payer OTHER, SELFPAY | PROVIDERS: PCP Internal Medicine; Visit Provider Radiology Diagnostic Ultrasound | DX: R10.13 Epigastric pain (principal); R14.0 Abdominal distension (gaseous); K59.00 Constipation, unspecified | CPT/HCPCS: 74018; 74177 ==